=== PATIENT | female | born 1985 | race Caucasian/White ===

== ENCOUNTER 2024-11-20 15:55 | Emergency (ER) | payer OTHER, SELFPAY ==
--- NOTE | 2024-11-20 16:03 | ED.GENADULT ---
HPI - General Adult General Chief complaint: Upper Respiratory Infection Stated complaint: L ear pain, sore throat Time Seen by Provider: 11/20/24 15:57 Source: patient Mode of arrival: ambulatory Limitations: no limitations History of Present Illness HPI narrative: Pt is a 39 y/o female presenting with c/o URI sx. Pt reports L. ear pain, sore throat x 2 days. States she had preceding congestion which has since resolved. NO known exposure to COVID,FLU,STREP,PNA however, she is a professor at [employer]. No tx initiated VAT [employer]. No additional complaints. Related Data Home Medications ?Medication ?Instructions ?Recorded ?Confirmed ?Last Taken ?Type No Home Medications 11/20/24 11/20/24 Unknown History Allergies Allergy/AdvReac Type Severity Reaction Status Date / Time cefixime (From Suprax) Allergy Anaphylaxis Verified 11/20/24 16:10 cefprozil (From Cefzil) Allergy Anaphylaxis Verified 11/20/24 16:10 iohexol (From contrast - CT, Allergy Anaphylaxis Verified 11/20/24 16:10 X-RAY) Sulfa (Sulfonamide Allergy Anaphylactic Verified 11/20/24 16:10 Antibiotics) Shock Review of Systems Review of Systems: CONSTITUTIONAL: Denies body aches, fever, chills, or sweats. EYES: Denies visual changes, redness, or discharge. ENT: reports sore throat, L otalgia, denies rhinorrhea, congestion CARDIOVASCULAR: Denies chest pain, palpitations, or edema. RESPIRATORY: Denies cough or dyspnea. GASTROINTESTINAL: Denies abdominal pain, nausea, vomiting, or diarrhea. GENITOURINARY: Denies dysuria or hematuria. SKIN: Denies rash, itching, or wounds. MUSCULOSKELETAL: Denies back pain, joint pain, or myalgia. NEUROLOGIC: Denies headache, numbness, tingling, or weakness. PSYCH: Denies depression or anxiety. All systems reviewed & are unremarkable except as noted in HPI and below Exam Narrative: GENERAL: Well-appearing, well-nourished, and in no acute distress. HEAD: Normocephalic, atraumatic. EYES: EOMI. No redness or drainage. Conjunctivae normal. ENT: Mucous membranes pink and moist. Nares clear. No rhinorrhea. +bilateral cerumen impaction. TMs normal bilaterally. +clear postnasal drainage. no mastoid tenderness. Throat normal. Uvula midline. NECK: Normal AROM. Supple. No lymphadenopathy. CHEST: No respiratory distress. HEART: Regular rate MUSCULOSKELETAL: No bony tenderness. EXTREMITIES: Normal range of motion. No edema. SKIN: Warm, dry, no rash. Capillary refill normal. Normal skin turgor. NEURO: No focal deficits. Alert and oriented x3. Gait steady. PSYCH: Normal affect. No signs of depression or anxiety. Course Course Level of Care: Express Care Visit Vital Signs Vital signs: Vital Signs Temperature 97.6 F 11/20/24 16:11 Pulse Rate 75 11/20/24 16:11 Respiratory Rate 16 11/20/24 16:11 Blood Pressure 95/70 L 11/20/24 16:11 Pulse Oximetry 99 11/20/24 16:11 Temperature 97.6 F 11/20/24 16:11 Pulse Rate 75 11/20/24 16:11 Respiratory Rate 16 11/20/24 16:11 Blood Pressure 95/70 L 11/20/24 16:11 Pulse Oximetry 99 11/20/24 16:11 Procedures Ear Wax Removal Both Ears: Ear Wax Removal Date: 11/20/24 Ear Wax Removal Time: 16:50 Results: Re-examined: some cerumen remains TM Examination: TM(s) intact, normal appearance Ear Canal Exam: atraumatic Patient Tolerated Procedure: well Complications: no problems Technique: ear canal curetted Medical Decision Making Vital Signs Vital Signs: Vital Signs Temperature 97.6 F 11/20/24 16:11 Pulse Rate 75 11/20/24 16:11 Respiratory Rate 16 11/20/24 16:11 Blood Pressure 95/70 L 11/20/24 16:11 Pulse Oximetry 99 11/20/24 16:11 Temperature 97.6 F 11/20/24 16:11 Pulse Rate 75 11/20/24 16:11 Respiratory Rate 16 11/20/24 16:11 Blood Pressure 95/70 L 11/20/24 16:11 Pulse Oximetry 99 11/20/24 16:11 Lab Data Lab results reviewed: Yes I reviewed the patient's lab results. Labs: Lab Results 11/20/24 Range/Units 16:24 POC Grp A Strep Screen Negative (Negative) Discharge Plan Discharge Clinical Impression: Otalgia, left ear, Bilateral impacted cerumen Pharyngitis Qualifiers: Pharyngitis/tonsillitis etiology: unspecified etiology Qualified Code(s): J02.9 - Acute pharyngitis, unspecified Patient Disposition: Home Condition: Stable Instructions: Antibiotic Form, Viral Syndrome (ED) Additional Instructions: Go straight to ER should your symptoms become worse or should any new symptoms develop Patient Language: Divehi Prescriptions: No Action No Home Medications Follow-up/Referrals: UNKNOWN,DOCTOR [Primary Care Provider] - 11/21/24 Time of Disposition: 16:52
[2024-11-20 16:11] VITALS: BP 95/70; PULSE 75; RESP 16; TEMP 36.4; O2SAT 99
[2024-11-20 16:27] LABS: EDSTREPNEGPOS1 Negative (Negative)
== END 2024-11-20 16:57 | disposition home or self-care (01) ==
PROVIDERS: Emergency Provider Registered Nurse
DX: H92.02 Otalgia, left ear (principal); H61.23 Impacted cerumen, bilateral; J02.9 Acute pharyngitis, unspecified
CPT/HCPCS: 69210; 87081; 87880; 99213; G0463